=== PATIENT | male | born 1990 | race Caucasian/White ===

== ENCOUNTER 2019-01-17 23:05 | Emergency (ER) | payer BC ==
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
== END 2019-01-17 23:22 ==
LOC: VM.ED 23:05
DX: Z02.89 Encounter for other administrative examinations (principal)
CPT/HCPCS: 99283